=== PATIENT | male | born 1955 | race Caucasian/White ===

== ENCOUNTER 2017-10-04 05:24 | Inpatient (IN) | payer BC ==
[2017-10-04] MEDS: CEFAZOLIN 2 GM/50 ML (PMX) 50 ML IVPB (06:50)
[2017-10-04] MEDS: LACTATED RINGER'S 1,000 ML IV* ×2 (06:50)
[2017-10-04] MEDS ORDERED: CEFAZOLIN 1 GM INJ (07:00)
[2017-10-04] MEDS ORDERED: MIDAZOLAM 1 MG/ML 2 ML INJ (07:07)
[2017-10-04] MEDS ORDERED: FENTAnyl 50 MCG/ML VIAL (07:07)
[2017-10-04] MEDS ORDERED: SUCCINYLCHOLINE CHLORIDE 100 MG/5 ML SYG IV (07:07)
[2017-10-04] MEDS ORDERED: ROCURONIUM 50 MG INJ (07:07)
[2017-10-04] MEDS ORDERED: PROPOFOL 20 ML (07:07)
[2017-10-04] MEDS ORDERED: LIDOCAINE 2% (SDV) 5 ML INJ (07:07)
[2017-10-04] MEDS ORDERED: EPHEDrine SULFATE 50 MG/5 ML SYG (07:31)
[2017-10-04] MEDS: BUPIVACAINE 0.25% (MPF) 30 ML INJ (07:33)
[2017-10-04] MEDS ORDERED: FAMOTIDINE 20 MG INJ (07:35)
[2017-10-04] MEDS ORDERED: ONDANSETRON 4 MG INJ (07:35)
[2017-10-04] MEDS ORDERED: DEXAMETHASONE 4 MG/ML 1 ML INJ (07:35)
[2017-10-04] MEDS ORDERED: ESMOLOL 10 ML (07:43)
[2017-10-04] MEDS ORDERED: HYDROmorphONE 2 MG/ML SYG (07:48)
[2017-10-04] MEDS: POLYMYXIN/BACITRACIN 1L IRRIG (08:14)
[2017-10-04] MEDS: GELATIN SIZE 100 SPONGE (08:15)
[2017-10-04] MEDS: THROMBIN 5000 UNIT VIAL (08:15)
[2017-10-04] MEDS ORDERED: SUGAMMADEX SODIUM 200 MG/2 ML VIAL IV ×2 (08:16→08:28)
[2017-10-04] MEDS ORDERED: MEPERIDINE 25 MG INJ IV (09:00)
[2017-10-04] MEDS ORDERED: BETHANECHOL 25 MG TAB PO (09:00)
[2017-10-04] MEDS ORDERED: HYDROCODONE/APAP (5/325) TAB PO ×2 (09:00)
[2017-10-04] MEDS ORDERED: DIPHENHYDRAMINE 50 MG CAP PO (09:00)
[2017-10-04] MEDS ORDERED: NACL 0.9% 3 ML SYG IV (09:00)
[2017-10-04] MEDS ORDERED: AL HYDROX/MG HYDROX/SIMETH 30 ML CUP PO (09:00)
[2017-10-04] MEDS ORDERED: DIAZEPAM 5 MG/ML SYG IM (09:00)
[2017-10-04] MEDS ORDERED: PROCHLORPERAZINE 10 MG INJ IV (09:00)
[2017-10-04] MEDS ORDERED: PROCHLORPERAZINE 10 MG TAB PO (09:00)
[2017-10-04] MEDS ORDERED: NALOXONE (0.4 MG/ML) INJ IV (09:00)
[2017-10-04] MEDS ORDERED: FENTAnyl 50 MCG/ML VIAL IV ×3 (09:00)
[2017-10-04] MEDS ORDERED: TRIMETHOBENZAMIDE 100 MG/ML VIAL IM (09:00)
[2017-10-04] MEDS ORDERED: DIPHENHYDRAMINE 50 MG INJ IV (09:00)
[2017-10-04] MEDS ORDERED: ONDANSETRON 4 MG INJ IV (09:00)
[2017-10-04] MEDS ORDERED: ZOLPIDEM 5 MG TAB PO ×2 (09:00→13:30)
[2017-10-04] MEDS ORDERED: DIAZEPAM 5 MG TAB PO (09:00)
[2017-10-04] MEDS ORDERED: HYDROmorphONE (0.2 MG/ML) 10ML SYG IV (09:00)
[2017-10-04] MEDS: HYDROmorphONE (0.2 MG/ML) 10ML SYG IV ×4 (09:10→09:42)
[2017-10-04] MEDS: HYDROmorphONE 0.2 MG/ML PCA IV (09:17)
[2017-10-04] MEDS: ONDANSETRON 4 MG INJ IV (09:45)
[2017-10-04] MEDS: CEFAZOLIN 1 GM/50 ML (PMX) 50 ML IVPB ×3 (13:17→23:51)
[2017-10-04] MEDS: DEXTROSE 5%-0.45% NACL 1,000 ML IV ×2 (13:17→18:44)
[2017-10-04] MEDS: GABAPENTIN 300 MG CAP PO (21:36)
[2017-10-04] MEDS: RANITIDINE 150 MG TAB PO (21:36)
[2017-10-04] MEDS: TAMSULOSIN (SR) 0.4 MG CAP PO (21:36)
[2017-10-04] MEDS: CEPASTAT LOZENGE MT (23:51)
[2017-10-05] MEDS: DEXTROSE 5%-0.45% NACL 1,000 ML IV (04:44)
[2017-10-05 05:48] LABS: HEMATOCRIT 40.5 % (42.0-52.0); HEMOGLOBIN 14.3 g/dl (14.0-18.0)
[2017-10-05] MEDS: CEFAZOLIN 1 GM/50 ML (PMX) 50 ML IVPB (05:54)
[2017-10-05 06:19] LABS: ANION GAP 16 (8-16); BLOOD UREA NITROGEN 13 mg/dl (7-20); CALCIUM 9.2 mg/dl (8.4-10.2); CARBON DIOXIDE 27 mmol/L (21-31); CHLORIDE 107 mmol/L (97-110); CREATININE 0.96 mg/dl (0.61-1.24); GLUCOSE 111 mg/dl (70-220); POTASSIUM 4.2 mmol/L (3.5-5.1); SODIUM 146 mmol/L (135-144)
[2017-10-05] MEDS ORDERED: BETHANECHOL 25 MG TAB PO (08:00)
[2017-10-05] MEDS: FERROUS SULFATE (EC) 325 MG TAB PO ×2 (08:12→12:55)
[2017-10-05] MEDS: ASCORBIC ACID 500 MG TAB PO (08:13)
[2017-10-05] MEDS: DOCUSATE SODIUM 100 MG CAP PO (08:13)
[2017-10-05] MEDS: RANITIDINE 150 MG TAB PO (08:13)
[2017-10-05] MEDS: ACETAMINOPHEN 325 MG TAB PO ×2 (08:13→13:27)
[2017-10-05] MEDS ORDERED: traMADol 50 MG TAB PO (09:30)
== END 2017-10-05 17:00 | disposition home or self-care (01) | DRG 520 ==
LOC: REC 05:24 → MS1 10:04
PROC: 0SB20ZZ Excision of Lumbar Vertebral Disc, Open Approach (ICD-10-PCS; principal; 2017-10-04 07:00)
DX: M51.16 Intervertebral disc disorders with radiculopathy, lumbar region (principal); E78.5 Hyperlipidemia, unspecified; N40.0 Benign prostatic hyperplasia without lower urinary tract symptoms; G47.00 Insomnia, unspecified
CPT/HCPCS: 72020; 80048; 85014; 85018; 86850; 86900; 86901; 86920; 88304; 93005; 97116; 97162; 97530